=== PATIENT | male | born 1965 | race Caucasian/White ===

== ENCOUNTER 2024-11-01 22:14 | Emergency (ER) | payer SELFPAY ==
--- NOTE | ~2024-11-01 | XR_ITS ---
Portable chest x-ray Comparison: None Clinical History: Chest pain Findings: Lungs are clear, without focal consolidation or pleural effusion. Cardiomediastinal silho uette is unremarkable. Bones and soft tissues are unremarkable. Impression: Normal chest. Reviewed, dictated and finalized at location [facility]. Impression: Normal chest.
--- NOTE | ~2024-11-01 | CT_ITS ---
Clinical Indication: Chest pain CT Scan of the Chest with Contrast: Technique: Contiguous sections were acquired throughout the chest after intravenous administration of 100 cc of Omnipaque 350. Dose reduction technique was used on this scan by utilizing automated expos ure control and iterative reconstruction technique. The dose-length product (DLP) was 399.43 mGy-cm. Findings: There is no evidence of any significant mediastinal, hilar or axillary lymphadenopathy. There is no f illing defect in the pulmonary arterial tree to suggest pulmonary embolus. There is no evidence of ao rtic dissection or aneurysm. There is no evidence of pleural or pericardial effusion. The lungs are clear. No pulmonary nodules or infiltrates are noted. Images through the upper abdomen reveal no abnormalities. Impression: No evidence of pulmonary embolus, aortic dissection, or aortic aneurysm. Clear lungs. Reviewed, dictated and finalized at [facility]. Impression: No evidence of pulmonary embolus, aortic dissection, or aortic aneurysm. Clear lungs.
[2024-11-01 22:16] VITALS: BP 128/83; PULSE 79; RESP 14; TEMP 36.6; O2SAT 98
--- NOTE | 2024-11-01 22:20 | ECG_ITS ---
Test Date: 2024-11-01 22:17:40 Measurements Intervals [place] Rate: 79 P: 16 DE: 177 QRS: -36 QRSD: 105 T: 21 QT: 367 QTc: 423 Interpretive Statements SINUS RHYTHM MARKED LEFT AXIS DEVIATION [QRS AXIS < -30] No previous ECG available for comparison Electronically Signed On 11-02-2024 11:26:02 CDT by Mert Marti M.D.
[2024-11-01 22:30] LABS: Basophils Percent Auto 0.5 % (0.2-1.2); Eosinophils Absolute Auto 0.4 K/mm3 (0-0.3); Eosinophils Percent Auto 5.9 % (0-4.4); Hematocrit 40.3 % (42.0-52.0); Hemoglobin 13.1 g/dL (14.0-18.0); Immature Granulocyte Absolute 0.01 K/mm3 (0.00-0.031); Immature Granulocyte Percent A 0.2 % (0-0.5); Lymphocytes Absolute Auto 0.93 K/mm3 (0.9-3.2); Lymphocytes Percent Auto 14.8 % (18.3-44.2); Mean Corpuscular HGB Conc 32.5 g/dl (32-36); Mean Corpuscular Hemoglobin 27.9 pg (26-34); Mean Corpuscular Volume 85.7 fl (80-100); Mean Platelet Volume 10.2 fl (7.4-10.4); Monocytes Absolute Auto 0.7 K/mm3 (0.1-0.6); Neutrophils Absolute Auto 4.3 K/mm3 (1.3-6.7); Neutrophils Percent Auto 67.6 % (45.5-73.1); Platelet Count Result 172 k/mm3 (150-375); Red Cell Distribution Width 15.9 % (11.5-14.5); White Blood Count 6.3 K/mm3 (4.5-10.0)
--- NOTE | 2024-11-01 22:41 | ED_ITS ---
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 Related Data Allergies Allergy/AdvReac Type Severity Reaction Status Date / Time No Known Allergies Allergy Verified 11/01/24 22:27 Review of Systems 2 Review of Systems: All systems reviewed & are unremarkable except as noted in HPI and below Exam 2 Narrative: EXAMINATION OF ORGAN SYSTEMS/BODY AREAS: Constitutional: Vital signs per nursing GENERAL:[No acute distress, non-toxic appearing.] HEAD: Normal with no signs of head trauma. EYES: EOMI, conjunctiva normal ENT: Hearing grossly intact LUNGS: Nonlabored breathing. HEART: [Regular rate and rhythm]; warm/ well perfused left foot ABD: [Soft], [nontender to palpation] EXT: Normal range of motion SKIN: Some redness and induration to the left lower leg with tiny open ulcers slightly oozing blood NEURO: [Alert and oriented x 3. No gross focal sensory or strength deficits.] PSYCH: Normal affect Course Vital Signs Vital signs: Vital Signs Temperature 98 F 11/01/24 22:16 Pulse Rate 79 11/01/24 22:16 Respiratory Rate 14 11/01/24 22:16 Blood Pressure 128/83 11/01/24 22:16 Pulse Oximetry 98 11/01/24 22:16 Oxygen Delivery Room Air 11/01/24 22:16 Temperature 98 F 11/01/24 22:16 Pulse Rate 78 11/01/24 23:43 Respiratory Rate 14 11/01/24 23:43 Blood Pressure 116/80 11/01/24 23:43 Pulse Oximetry 100 11/01/24 23:43 Oxygen Delivery Room Air 11/01/24 22:50 MDM - Chest Pain MDM Narrative Medical decision making narrative: Patient who is on blood thinners presents here with chest pain that started after being arrested, he is also no reported some left leg swelling, he is concerned about DVT/PE. On evaluation he is sleeping but wakes easily to answer my questions. In no distress whatsoever. Left leg slightly swollen with some slight bloody oozing from an ulcer but the foot is warm and well perfused normal pulses. Initial EKG on my independent interpretation very limited by artifact, appears to be in normal sinus rhythm or rate 79, normal SD, QRS, QTC intervals, there is left axis deviation. No obvious ST elevations or depressions but again quite limited by quality of EKG D-dimer elevated here, will obtain CT PE, and arrange patient follow-up for DVT ultrasound tomorrow as we do not have photovoltaic technician tonight. Repeat EKG at 12:29 a.m. on my independent interpretation shows normal sinus rhythm rate 76, SD 182, QRS 114, QTC 412, left axis, and no obvious ST elevations or depressions or signs of acute arrhythmia or ischemia. Repeat troponin is negative. CT PE negative for PE. Will have patient follow PCP, come back for DVT ultrasound, or for any further issues or symptoms. Will be discharged in stable condition to police custody Lab Data 11/01/24 22:25 11/01/24 22:25 Labs: Lab Results 11/01/24 11/02/24 Range/Units 22:25 00:30 WBC 6.3 (4.5-10.0) K/mm3 RBC 4.70 (4.6-6.20) M/mm3 Hgb 13.1 L (14.0-18.0) g/dL Hct 40.3 L (42.0-52.0) % MCV 85.7 (80-100) fl MCH 27.9 (26-34) pg MCHC 32.5 (32-36) g/dl RDW 15.9 H (11.5-14.5) % Plt Count 172 (150-375) k/mm3 MPV 10.2 (7.4-10.4) fl Immature Gran % (Auto) 0.2 (0-0.5) % Neut % (Auto) 67.6 (45.5-73.1) % Lymph % (Auto) 14.8 L (18.3-44.2) % [place] % (Auto) 11.0 H (2.6-8.5) % Eos % (Auto) 5.9 H (0-4.4) % Baso % (Auto) 0.5 (0.2-1.2) % Lymph # (Auto) 0.93 (0.9-3.2) K/mm3 [place] # (Auto) 0.7 H (0.1-0.6) K/mm3 Eos # (Auto) 0.4 H (0-0.3) K/mm3 Baso # (Auto) 0.0 (0.0-0.1) K/mm3 Abs Immat Gran (auto) 0.01 (0.00-0.031) K/mm3 Absolute Neuts (auto) 4.3 (1.3-6.7) K/mm3 Absolute Nucleated RBC 0.000 (0.0-0.012) K/mm3 Nucleated RBC % 0.0 (0.0-0.2) % D-Dimer 6.91 H (<0.48) ug/mL Sodium 141 (137-145) mmol/L Potassium 3.7 (3.4-5.0) mmol/L Chloride 106 (98-107) mmol/L Carbon Dioxide 22 (22-30) mmol/L Anion Gap 13 H (4-12) mmol/L BUN 17 (9-20) mg/dL Creatinine 0.78 (0.7-1.3) mg/dL Estim Creat Clear Calc 114 ml/min Estimated GFR > 60 (59 - ) Glucose 114 H (65-110) mg/dL Calcium 8.8 (8.4-10.2) mg/dL Total Bilirubin 0.6 (0.2-1.3) mg/dL AST 37 (17-59) U/L ALT 26 (6-50) U/L Alkaline Phosphatase 89 (38-126) U/L Troponin I < 0.012 < 0.012 (0.000-0.034) ng/mL Total Protein 8.0 (6.3-8.2) g/dL Albumin 4.4 (3.5-5.1) g/dL Discharge Plan Discharge Clinical Impression: Left leg pain, Atypical chest pain Patient Disposition: Home, Self-Care Condition: Stable Instructions: Chest Pain (ED), Venous Insufficiency (DC) Additional Instructions: Please follow-up tomorrow if to get an ultrasound of your leg to make sure there is no blood clot. Continue taking your blood thinners, start taking the antibiotics, and follow-up with your primary care doctor in the next 2-3 days. You can always return to the emergency room if your pain returns or worsens or anything else concerning. Patient Language: Romanian Prescriptions: New cephalexin 500 mg capsule 500 mg PO Q6H 7 Days Qty: 28 0RF Other Ambulatory Orders: US venous doppler LE LT (Routine) Timeframe: 1 Day Location: Determined by Patient Ordered By: Jane Haque Follow-up/Referrals: PHYSICIAN NOT ON STAFF,NONSTAFF [Primary Care Provider] -
[2024-11-01 22:43] LABS: Alanine Aminotransferase 26 U/L (6-50); Albumin Level 4.4 g/dL (3.5-5.1); Alkaline Phosphatase 89 U/L (38-126); Anion Gap 13 mmol/L (4-12); Aspartate Amino Transferase 37 U/L (17-59); Bilirubin,Total 0.6 mg/dL (0.2-1.3); Blood Urea Nitrogen 17 mg/dL (9-20); Calcium 8.8 mg/dL (8.4-10.2); Carbon Dioxide 22 mmol/L (22-30); Chloride 106 mmol/L (98-107); Estimated CRCL calculation 114 ml/min; Estimated Glomerular Filt Rate > 60; Glucose 114 mg/dL (65-110); Potassium 3.7 mmol/L (3.4-5.0); Sodium 141 mmol/L (137-145)
[2024-11-01 22:50] VITALS: O2SAT 100
[2024-11-01 22:55] LABS: Troponin I < 0.012 ng/mL (0.000-0.034)
[2024-11-01 23:11] LABS: D Dimer 6.91 ug/mL (<0.48)
[2024-11-01 23:35] VITALS: PULSE 85
[2024-11-01 23:43] VITALS: BP 116/80; PULSE 78; RESP 14; O2SAT 100
[2024-11-02 01:06] LABS: Troponin I < 0.012 ng/mL (0.000-0.034)
[2024-11-02 01:20] VITALS: BP 117/79; PULSE 85; RESP 14; O2SAT 97
[2024-11-02] MEDS: CEPHALEXIN 500 MG CAPSULE PO (01:25)
--- NOTE | 2024-11-02 01:25 | ECG_ITS ---
Test Date: 2024-11-02 00:29:44 Measurements Intervals [place] Rate: 76 P: 16 SC: 182 QRS: -31 QRSD: 114 T: 7 QT: 382 QTc: 430 Interpretive Statements SINUS RHYTHM MARKED LEFT AXIS DEVIATION [QRS AXIS < -30] POSSIBLE RIGHT VENTRICULAR CONDUCTION DELAY [RSR (QR) IN V1/V2] Electronically Signed On 11-02-2024 11:33:39 CDT by Mert Marti M.D.
== END 2024-11-02 02:12 ==
PROVIDERS: Emergency Provider Emergency Medicine
DX: R07.89 Other chest pain (principal); M79.605 Pain in left leg; Z86.718 Personal history of other venous thrombosis and embolism; Z79.01 Long term (current) use of anticoagulants
CPT/HCPCS: 36415; 71045; 71275; 80053; 84484; 85025; 85380; 93005; 99284; A9270; Q9967